=== PATIENT | male | born 1990 | race Hispanic/Latino ===

== ENCOUNTER 2018-01-05 10:06 | Inpatient (IN) | payer MEDICAID ==
[2018-01-05 10:13] VITALS: BMI 24.7
[2018-01-05 10:54] LABS: BASO % 0.7 % (0.0-2.0); EOS % 0.3 % (0.0-4.0); HEMOGLOBIN 14.1 g/dL (12.0-18.0); LYMPH % 18.9 % (20.0-40.0); MEAN CELL VOLUME 87.3 fL (80.0-94.0); MEAN CORPUSCULAR HEMOGLOBIN 29.8 pg (27.0-31.0); MEAN CORPUSCULAR HGB CONC 34.1 g/dL (33.0-37.0); MEAN PLATELET VOLUME 6.9 fL (7.2-11.7); MONO # 0.3 K/uL (0.0-0.8); MONO % 6.6 % (0.0-10.0); NEUT # 3.7 K/uL (1.8-7.0); NEUT % 73.5 % (50.0-75.0); RBC 4.71 Mil/uL (4.40-5.90); RED CELL DISTRIBUTION WIDTH 13.4 % (11.5-14.5); WHITE BLOOD COUNT 5.1 K/uL (4.8-10.8)
[2018-01-05 11:09] LABS: SQUAMOUS EPITHIAL < 1 /hpf (0-5); URINE AMORPHOUS SEDIMENT OCC /ul (<OCC); URINE BACTERIA RARE (<OCC); URINE BILIRUBIN NEGATIVE (NEGATIVE); URINE BLOOD NEGATIVE (NEGATIVE); URINE CLARITY Hazy (Clear); URINE COLOR Yellow (YELLOW); URINE GLUCOSE (UA) NORMAL (Normal); URINE LEUKOCYTE ESTERASE TRACE Leu/uL (Negative); URINE PROTEIN NEGATIVE (NEGATIVE)
[2018-01-05 11:21] LABS: BARBITURATES, UR NEGATIVE (NEGATIVE); BENZODIAZEPINES, UR NEGATIVE (NEGATIVE); PHENCYCLIDINE, UR NEGATIVE (NEGATIVE)
[2018-01-05 11:56] LABS: OPIATES, UR POSITIVE (NEGATIVE)
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
[2018-01-05 12:17] LABS: ALB/GLOB RATIO 1.5 (1.0-2.1); ALBUMIN 4.5 g/dL (3.5-5.0); ALT/SGPT 35 U/L (21-72); AST/SGOT 24 U/L (17-59); BLOOD UREA NITROGEN 15 mg/dL (9-20); CALCIUM 9.8 mg/dl (8.6-10.4); GFR NON-AFRICAN AMERICAN > 60
--- NOTE | 2018-01-05 14:35 | PCM.BM ---
<HernándezMaria De Jesus Janessa - Last Filed: 01/05/18 14:34> Treatment Plan Problems - Problems identified on initial assessmt Depression Date Initiated: 01/05/18 Time Initiated: 14:35 Assessment reference: NA Status: Active Substance Abuse Date Initiated: 01/05/18 Time Initiated: 14:35 Assessment reference: NA Status: Active Treatment assets and liabiliti Patient Assests: cooperative, ADL independent, physically healthy, negotiates basic needs, cognitively intact Patient Liabilities: financial problems, poor support system, substance abuse, legal issue - Milieu Protocol Maintain good personal hygiene: daily Encourage regular showers, daily Remind patient to perform daily oral care, daily Assist patient to perform ADL's Conduct patient checks and document Observation sheet: Q15 minutes Maintain personal safety: every shift Educate patient to report safety concerns to staff, every shift Monitor environment for contraband/sharps Medication safety: Monitor for expected outcome, potential side effects: every shift, Assess barriers to learning: every shift, Assess readiness for medication education: every shift <Wero Gregg - Last Filed: 01/10/18 11:32> - Diagnosis (1) Single major depressive episode, severe, with psychosis Status: Acute Interventions: 01/10/18 11:33 * Assess/adjust medications daily and /or as needed * See patient on an individual basis 7x/week to assess symptoms of depression * Monitor for side effects & effectiveness of medications * (2) Opioid use disorder, severe, dependence Status: Acute Interventions: 01/10/18 11:33 * Assess 7x/week regarding severity of withdrawal * Educate regarding risks, benefits, side effects and alternatives of medications * Use Motivational Interviewing for abstinence * Use CBT for relapse prevention * Medication management for withdrawal symptoms * Encourage medication assisted treatment * <Millie Dhillon - Last Filed: 01/10/18 12:39> Family Contact Family involvement: Patient does not wish Family/SO involvement Family contact: Patient declines to allow family contact at present - Goals for Treatment Patient goals for treatment: "I am going to [facility]." Discharge/Continuing Care - Education Needs Education Needs: Patient Medication, Patient Diagnosis/Disease Process, Patient Coping Skills, Patient Placement options, Patient Community resources - Discharge Discharge Criteria: Free of Suicidal thoughts, Normal sleep pattern, Ability to care for self, No longer exhibiting s/s of withdrawal, Reduction of target symptoms Discharge to:: Substance Abuse Rehab - Treatment Team Participation Discussed with Family/SO: No Was Patient/Family/SO present at Treatment Team Meeting: Yes
[2018-01-05] MEDS ORDERED: Aluminum Hydroxide/Magnesium Hydroxide Susp (30 mL) PO PRN (14:43)
[2018-01-05] MEDS ORDERED: Benzocaine/Menthol (Cepacol) Lozenge PO PRN (14:45)
[2018-01-06 06:55] VITALS: RESP 18
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
--- NOTE | 2018-01-07 10:40 | PCM.PYCHPN ---
Psychiatric Progress Note - Psychiatric Progress Note Patient seen today, length of contact: 15 min Patient Chief Complaint: I am withdrawing Problems Identified/Issues Discussed: Patient seen and evaluated, chart reviewed and discussed with the nurse. Pt reports depressed mood, and reports feelings of hopelessness and helplessness. He remained isolated and withdrawn, and confined to his room. Patient reports of withdrawal symptoms including abdominal cramps, anxiety, headaches and sweating. He denies any auditory hallucinations, visual hallucinations, or any paranoia. Patient is compliant with medications and denies any side effects. Symptoms are improving but pt needs more time to stabilize. Support and psychoeducation given. Medication Change: Yes Medical Record Reviewed: Yes Mental Status Examination - Cognitive Function Orientation: Person, Place, Situation, Time Memory: Intact Attention: WNL Concentration: Poor Association: WNL Fund of Knowledge: Poor - Mood Mood: Depressed, Anxious - Affect Affect: Constricted, Depressed - Speech Speech: Soft - Formal Thought Process Formal Thought Process: No Impairment - Suicidal Ideation Suicidal Ideation: No - Homicidal Ideation Homicidal Ideation: No Goal/Treatment Plan - Goal/Treatment Plan Need for Continued Stay: Severe depression anxiety, Severe functional impairment Progress Toward Problem(s) and Goals/Treatment Plan: Major depressive disorder recurrent severe without psychotic features Opioid use disorder severe Opioid withdrawal CBT Psychoeducation Supportive therapy, group therapy, individual therapy Trazodone 50 mg by mouth daily at bedtime Hydroxyzine 25 mg by mouth every 6 hours when necessary Gabapentin 100 mg po TID Remeron 15 mg PO HS Use [place] for abstinence Clonidine when necessary Methadone taper - Smoking Cessation Smoking Cessation Initiated: No
[2018-01-08 06:49] VITALS: O2SAT 99
[2018-01-08] MEDS ORDERED: Influenza Vaccine 60 MCG/0.5 ML SYR (3 yr & up) IM ONE (10:00)
[2018-01-08] MEDS ORDERED: Pneumococcal 23-Valent Vaccine IM ONE (10:00)
--- NOTE | 2018-01-09 01:17 | PCM.PYCHPN ---
Psychiatric Progress Note - Psychiatric Progress Note Patient seen today, length of contact: 15 min Patient Chief Complaint: I am withdrawing Problems Identified/Issues Discussed: Patient seen and evaluated, chart reviewed and discussed with the nurse. Today pt reports improvement in the depressed mood, and feelings of hopelessness and helplessness. He remained isolated and withdrawn, and confined to his room. Patient reports improvement in the withdrawal symptoms but reports abdominal cramps, anxiety, headaches and sweating. He denies any auditory hallucinations, visual hallucinations, or any paranoia. Patient is compliant with medications and denies any side effects. Symptoms are improving but pt needs more time to stabilize. Support and psychoeducation given. Medication Change: Yes Medical Record Reviewed: Yes Mental Status Examination - Cognitive Function Orientation: Person, Place, Situation, Time Memory: Intact Attention: WNL Concentration: Poor Association: WNL Fund of Knowledge: Poor - Mood Mood: Depressed, Anxious - Affect Affect: Constricted, Depressed - Speech Speech: Soft - Formal Thought Process Formal Thought Process: No Impairment - Suicidal Ideation Suicidal Ideation: No - Homicidal Ideation Homicidal Ideation: No Goal/Treatment Plan - Goal/Treatment Plan Need for Continued Stay: Severe depression anxiety, Severe functional impairment Progress Toward Problem(s) and Goals/Treatment Plan: Major depressive disorder recurrent severe without psychotic features Opioid use disorder severe Opioid withdrawal CBT Psychoeducation Supportive therapy, group therapy, individual therapy Trazodone 50 mg by mouth daily at bedtime Hydroxyzine 25 mg by mouth every 6 hours when necessary Gabapentin 300 mg po TID Remeron 30 mg PO HS Use [place] for abstinence Clonidine when necessary Methadone taper - Smoking Cessation Smoking Cessation Initiated: No
[2018-01-10 09:49] VITALS: BP 106/60; PULSE 61; TEMP 98.1
--- NOTE | 2018-01-10 10:39 | PCM.PYCHPN ---
Psychiatric Progress Note - Psychiatric Progress Note Patient seen today, length of contact: 15 min Patient Chief Complaint: I am withdrawing Problems Identified/Issues Discussed: Patient seen and evaluated, chart reviewed and discussed with the nurse. Today pt reports improvement in the depressed mood, and feelings of hopelessness and helplessness. He remained isolated and withdrawn, and confined to his room. Patient reports improvement in the withdrawal symptoms but reports abdominal cramps, anxiety, headaches and sweating. He denies any auditory hallucinations, visual hallucinations, or any paranoia. Patient is compliant with medications and denies any side effects. Symptoms are improving but pt needs more time to stabilize. Support and psychoeducation given. Medication Change: Yes Medical Record Reviewed: Yes Mental Status Examination - Cognitive Function Orientation: Person, Place, Situation, Time Memory: Intact Attention: WNL Concentration: Poor Association: WNL Fund of Knowledge: Poor - Mood Mood: Depressed, Anxious - Affect Affect: Constricted, Depressed - Speech Speech: Soft - Formal Thought Process Formal Thought Process: No Impairment - Suicidal Ideation Suicidal Ideation: No - Homicidal Ideation Homicidal Ideation: No Goal/Treatment Plan - Goal/Treatment Plan Need for Continued Stay: Severe depression anxiety, Severe functional impairment Progress Toward Problem(s) and Goals/Treatment Plan: Major depressive disorder recurrent severe without psychotic features Opioid use disorder severe Opioid withdrawal CBT Psychoeducation Supportive therapy, group therapy, individual therapy Trazodone 50 mg by mouth daily at bedtime Hydroxyzine 25 mg by mouth every 6 hours when necessary Gabapentin 300 mg po TID Remeron 30 mg PO HS Use [place] for abstinence Clonidine when necessary Methadone taper
[2018-01-10] MEDS ORDERED: Divalproex 250 mg DR Tab PO SCH (11:45)
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
== END 2018-01-10 14:03 | disposition home or self-care (01) | DRG 751 ==
LOC: C.ER 10:06 → C.5E 12:35
PROVIDERS: ADMIT Psychiatry & Neurology Psychiatry; ATTEND Psychiatry & Neurology Psychiatry
PROC: GZHZZZZ Group Psychotherapy (ICD-10-PCS; principal; 2018-01-05)
PROC: HZ2ZZZZ Detoxification Services for Substance Abuse Treatment (ICD-10-PCS; 2018-01-05)
PROC: HZ52ZZZ Individual Psychotherapy for Substance Abuse Treatment, Cognitive-Behavioral (ICD-10-PCS; 2018-01-05)
PROC: HZ59ZZZ Individual Psychotherapy for Substance Abuse Treatment, Supportive (ICD-10-PCS; 2018-01-05)
PROC: HZ56ZZZ Individual Psychotherapy for Substance Abuse Treatment, Psychoeducation (ICD-10-PCS; 2018-01-05)
PROC: HZ42ZZZ Group Counseling for Substance Abuse Treatment, Cognitive-Behavioral (ICD-10-PCS; 2018-01-05)
PROC: HZ46ZZZ Group Counseling for Substance Abuse Treatment, Psychoeducation (ICD-10-PCS; 2018-01-05)
PROC: GZ58ZZZ Individual Psychotherapy, Cognitive-Behavioral (ICD-10-PCS; 2018-01-05)
PROC: GZ56ZZZ Individual Psychotherapy, Supportive (ICD-10-PCS; 2018-01-05)
DX: F33.2 Major depressive disorder, recurrent severe without psychotic features (principal); F11.23 Opioid dependence with withdrawal; R45.851 Suicidal ideations; F41.8 Other specified anxiety disorders